=== PATIENT | male | born 1970 | race Hispanic/Latino ===

== ENCOUNTER → 2017-11-09 | Outpatient (CLI) | payer OTHER ==
--- NOTE | 2017-11-09 12:45 | Diagnostic Imaging Report ---
PROCEDURE:TESTICULAR ULTRASOUND COMPARISON:None. INDICATIONS:SPERMATOCELE OF EPIDIDYMIS TECHNIQUE: Calderon-scale and color doppler images of the testicles and scrotal contents were obtained. Duplex imaging with spectral waveform analysis was performed of the testicular arteries and veins. FINDINGS: RIGHT SCROTUM: Testicle: 4.2 x 2.5 x 3.3 cm. Normal echogenicity. Normal vascularity. No focal lesions. Epididymal head: 1.0 x 0.6 x 0.8 cm. No focal lesions. Normal vascularity. Hydrocele: Trace Varicocele: Possible small LEFT SCROTUM: Testicle: 4.4 x 2.0 x 2.9 cm. Normal echogenicity. Normal vascularity. No focal lesions. Epididymal head: 1.2 x 1.1 x 1.0 cm. 0.6 x 0.6 x 0.5 cm cystic lytic lesion in the left epididymal head. Hydrocele: None Varicocele: Possible small. Normal bilateral arterial and venous flow to both testicles. No sonographic evidence of inguinal hernia. CONCLUSION: 1. Normal bilateral testicular size and echogenicity, without focal lesions. 2. 0.6 cm left epididymal head simple cyst versus spermatocele. 3. Trace right hydrocele. 4. Possible small bilateral varicoceles, left greater than right. Raudel Christianson M.D. Dictated by: Raudel Christianson M.D. on 11/09/2017 at 12:50 Electronically approved by: Raudel Christianson M.D. on 11/09/2017 at 12:50
--- NOTE | 2017-11-09 12:46 | Diagnostic Imaging Report ---
PROCEDURE:TESTICULAR DOPPLER ULTRASOUND COMPARISON:None. INDICATIONS:SPERMATOCELE OF EPIDIDYMIS CONCLUSION: Please see testicular ultrasound performed same date for further detail. Raudel Christianson M.D. Dictated by: Raudel Christianson M.D. on 11/09/2017 at 12:51 Electronically approved by: Raudel Christianson M.D. on 11/09/2017 at 12:51
== END ==
LOC: US 11:15
PROVIDERS: ATTEND Urology
DX: N43.40 Spermatocele of epididymis, unspecified (principal)
CPT/HCPCS: 76870; 93976

== ENCOUNTER 2017-11-27 11:09 | Emergency (ER) | payer OTHER ==
[~2017-11-27] VITALS: Ht 175.3 cm; Wt 97.5 kg
[2017-11-27] MEDS ORDERED: LISINOPRIL10 MG PO (11:25)
[2017-11-27] MEDS ORDERED: METFORMIN HCL500 MG PO (11:27)
[2017-11-27 12:51] VITALS: BP 132/77
== END 2017-11-27 12:53 | disposition home or self-care (01) ==
LOC: FSED 11:09
DX: M79.671 Pain in right foot (principal); S92.344A Nondisplaced fracture of fourth metatarsal bone, right foot, initial encounter for closed fracture; X58.XXXA Exposure to other specified factors, initial encounter; I10 Essential (primary) hypertension; E11.9 Type 2 diabetes mellitus without complications
CPT/HCPCS: 99284

== ENCOUNTER 2018-05-30 14:11 | Emergency (ER) | payer OTHER ==
[~2018-05-30] VITALS: Ht 175.3 cm; Wt 97.5 kg
[~2018-05-30 14:11] MED LIST: LISINOPRIL10 MG PO; METFORMIN HCL500 MG PO
--- OUTSIDE RECORDS SUMMARY | 2018-05-30 14:13 | XMS REPORT | CCD ---
Author Author Auto Generated Organization [facility] Address Unknown Phone Unavailable Care Team Providers Care Food Service Lead Name Role Phone Moiz Peguero Sharmaine CP Allergies, Adverse Reactions, Alerts Substance Reaction Status NKDA Active Problem List Condition Effective Dates Status DM - Diabetes mellitus Resolved HTN - Hypertension Resolved Medications Medication Instructions Start Date End Date Status rabies immune 1,909.1 IntlUnit, 12.73 mL, Route: 09/29/2012 09/29/2012 Completed globulin, human IM, Drug form: INJ, ONCE, Dosing Weight 95.455, kg, Start date: 09/29/12 0:14:00, Stop date: 09/29/12 0:14:00 rabies vaccine, 2.5 unit, 1 mL, Route: IM, Drug 09/29/2012 09/29/2012 Completed purified chick Form: INJ, Dosing Weight 95.455, embryo kg, ONCE, STAT, Start date: 09/29/12 0:13:00, Stop date: 09/29/12 0:13:00 Vital Signs Most recent to oldest [Reference Range]: 1 Height 175.26 cm (09/28/2012 23:47:00) Weight 95.455 kg (09/28/2012 23:47:00)
--- OUTSIDE RECORDS SUMMARY | 2018-05-30 14:13 | XMS REPORT | Continuity of Care Document ---
Author Author [facility] Address Unknown Phone Unavailable Problems Problem Status Onset Date Classification Date Reported Comments Source OTHER Active 10/13/2012 [facility] RETURN VISIT Active 10/02/2012 [facility] BITE Active 09/29/2012 [facility] ANIMAL BITE Active 09/28/2012 [facility] DM - Diabetes mellitus Resolved Problem 10/15/2012 [facility] HTN - Hypertension Resolved Problem 10/15/2012 [facility] Medications Medication Details Route Status Patient Instructions Ordering Provider Order Date Source rabies vaccine, purified chick embryo 2.5 unit, 1 mL, Route: IM, Drug Form: INJ, Dosing Weight 97.727, kg, ONCE, STAT, Start date: 10/13/12 6:38:00, Stop date: 10/13/12 6:38:00 IM No Longer Active [facility] 10/13/2012 [facility] rabies vaccine, purified chick embryo 2.5 unit, 1 mL, Route: IM, Drug Form: INJ, Dosing Weight 95.455, kg, ONCE, STAT, Start date: 10/06/12 6:47:00, Stop date: 10/06/12 6:47:00 IM No Longer Active [place] 10/06/2012 [facility] rabies vaccine, purified chick embryo 2.5 unit, 1 mL, Route: IM, Drug Form: INJ, Dosing Weight 95.455, kg, ONCE, STAT, Start date: 10/02/12 8:25:00, Stop date: 10/02/12 8:25:00 IM No Longer Active [place] 10/02/2012 [facility] rabies immune globulin, human 1,909.1 IntlUnit, 12.73 mL, Route: IM, Drug form: INJ, ONCE, Dosing Weight 95.455, kg, Start date: 09/29/12 0:14:00, Stop date: 09/29/12 0:14:00 IM No Longer Active [place] 09/29/2012 [facility] rabies vaccine, purified chick embryo 2.5 unit, 1 mL, Route: IM, Drug Form: INJ, Dosing Weight 95.455, kg, ONCE, STAT, Start date: 09/29/12 0:13:00, Stop date: 09/29/12 0:13:00 IM No Longer Active [place] 09/29/2012 [facility] Lisinopril 10 Mg Tablet Daily Active [facility] Metformin Hcl 500 Mg Tablet Twice A Day [facility] Allergies, Adverse Reactions, Alerts Substance Category Reaction Severity Reaction type Status Date Reported Comments Source Immunizations Immunization Date Given Site Status Last Updated Comments Source Results Order Name Results Value Reference Range Date Interpretation Comments Source Vital Signs Vital Sign Value Date Comments Source Weight 97.727 10/13/2012 [facility] Height 175.26 cm 10/13/2012 [facility] Weight 97.727 10/06/2012 [facility] Height 175.26 cm 10/06/2012 [facility] Weight 95.455 10/02/2012 [facility] Height 175.26 cm 10/02/2012 [facility] Weight 95.455 09/29/2012 [facility] Height 175.26 cm 09/29/2012 [facility] Encounters Location Location Details Encounter Type Encounter Number Reason For Visit Attending Provider ADM Date DC Date Status Source [facility] Emergency [id number] CADENCE CALDERON 09/28/2012 09/29/2012 Active [facility] Emergency [id number] CADENCE CALDERON 10/02/2012 10/02/2012 Active [facility] Emergency [id number] FORTUNATO KOVACS 10/06/2012 10/06/2012 Active [facility] Emergency [id number] BEULAH APONTE 10/13/2012 10/13/2012 Active [facility] Registered Clinic [id number] COURTNEY HOFFMANN MD 11/09/2017 [facility] Departed Emergency Room [id number] JUHI TORRE MD 11/27/2017 11/27/2017 [facility] Procedures Procedure Code Date Perfomer Comments Source Testicular ultrasound [id number] 11/09/2017 [facility] Dup-scan artl jaelyn abdl/pel/scrot&/[place] [id number] 11/09/2017 [facility]
--- OUTSIDE RECORDS SUMMARY | 2018-05-30 14:13 | XMS REPORT | CCD ---
Author Author Auto Generated Organization [facility] Address Unknown Phone Unavailable Care Team Providers Care Lamp Tester And Inspector Name Role Phone Korey Monzon CP Allergies, Adverse Reactions, Alerts Substance Reaction Status NKDA Active Problem List Condition Effective Dates Status DM - Diabetes mellitus Resolved HTN - Hypertension Resolved Medications Medication Instructions Start Date End Date Status rabies vaccine, 2.5 unit, 1 mL, Route: IM, Drug 10/13/2012 10/13/2012 Completed purified chick Form: INJ, Dosing Weight 97.727, embryo kg, ONCE, STAT, Start date: 10/13/12 6:38:00, Stop date: 10/13/12 6:38:00 Vital Signs Most recent to oldest [Reference Range]: 1 Height 175.26 cm (10/13/2012 05:44:00) Weight 97.727 kg (10/13/2012 05:44:00)
--- OUTSIDE RECORDS SUMMARY | 2018-05-30 14:13 | XMS REPORT | CCD ---
Author Author Auto Generated Organization [facility] Address Unknown Phone Unavailable Care Team Providers Care Data Scientist Name Role Phone Duy Kovacs CP Allergies, Adverse Reactions, Alerts Substance Reaction Status NKDA Active Problem List Condition Effective Dates Status DM - Diabetes mellitus Resolved HTN - Hypertension Resolved Medications Medication Instructions Start Date End Date Status rabies vaccine, 2.5 unit, 1 mL, Route: IM, Drug 10/06/2012 10/06/2012 Completed purified chick Form: INJ, Dosing Weight 95.455, embryo kg, ONCE, STAT, Start date: 10/06/12 6:47:00, Stop date: 10/06/12 6:47:00 Vital Signs Most recent to oldest [Reference Range]: 1 Height 175.26 cm (10/06/2012 05:47:00) Weight 97.727 kg (10/06/2012 05:47:00)
--- OUTSIDE RECORDS SUMMARY | 2018-05-30 14:13 | XMS REPORT | Clinical Summary ---
Author Author [facility] Organization [facility] Address Unknown Phone Unavailable Care Team Providers Care Cold Storage Superintendent Name Role Phone Kevin Sharp MD PCP Allergies No Known Allergies Medications End Date Status Medication Sig Dispensed Refills Start Date Active pioglitazone-metformin 0 (ACTOPLUS MET) 15-850 mg 8 per tablet Active LANTUS SOLOSTAR U-100 0 INSULIN 100 unit/mL 8 injection (pen) Active ezetimibe (ZETIA) 10 mg 0 tablet 8 Active FARXIGA 5 mg tablet 0 8 Active azithromycin (ZITHROMAX) 0 500 MG tablet 8 Active atorvastatin (LIPITOR) 20 0 MG tablet 8 Active acetaminophen-codeine Take 1 tablet 0 (TYLENOL WITH CODEINE #3) by mouth 8 300-30 mg per tablet every 4 (four) hours as needed. for pain Active lisinopril 0 (PRINIVIL,ZESTRIL) 20 mg 8 tablet Active lisinopril 0 (PRINIVIL,ZESTRIL) 40 mg 8 tablet Active Problems Problem Noted Date Closed nondisplaced fracture of fourth metatarsal bone of right foot 11/30/2017 Encounters Care Team Description Date Type Specialty Kyle Desai MD Closed nondisplaced fracture of fourth metatarsal bone of right foot, initial encounter (Primary Dx) 02/06/2018 Office Visit Orthopedic Surgery Kyle Desai MD Closed nondisplaced fracture of fourth metatarsal bone of right foot, initial encounter (Primary Dx) 12/28/2017 Office Visit Orthopedic Surgery Kyle Desai MD 12/04/2017 Hospital Radiology Encounter Kyle Desai MD Closed nondisplaced fracture of fourth metatarsal bone of right foot, initial encounter (Primary Dx) 11/30/2017 Office Visit Orthopedic Surgery after 05/29/2017 Social History Date Tobacco Use Types Packs/Day Years Used Never Smoker Smokeless Tobacco: Never Used Alcohol Use Drinks/Week oz/Week Comments No Sex Assigned at Date Recorded Not on file Industry Job Start Date Occupation Not on file Not on file Not on file Travel End Travel History Travel Start No recent travel history available. Last Filed Vital Signs Time Taken Vital Sign Reading 12/28/2017 3:15 PM CDT Blood Pressure 130/76 12/28/2017 3:15 PM CDT Pulse 78 - Temperature - - Respiratory Rate - - Oxygen Saturation - - Inhaled Oxygen - Concentration 12/28/2017 3:15 PM CDT Weight 97.5 kg (215 lb) 12/28/2017 3:15 PM CDT Height 175.3 cm (5' 9") 12/28/2017 3:15 PM CDT Body Mass Index 31.75 Plan of Treatment Health Maintenance Due Date Last Done Comments INFLUENZA VACCINE 11/22/2017 Procedures Comments Procedure Name Priority Date/Time Associated Diagnosis XR FOOT 3+ VW RIGHT Routine 02/06/2018 Closed nondisplaced 3:00 PM CDT fracture of fourth metatarsal bone of right foot, initial encounter XR FOOT 3+ VW RIGHT Routine 12/28/2017 Closed nondisplaced 3:06 PM CDT fracture of fourth metatarsal bone of right foot, initial encounter XR LOWER EXTREMITY Routine 11/27/2017 EXTERNAL STUDY 4:21 PM CDT after 05/29/2017 Results * XR Foot 3+ Vw Right (02/06/2018 3:00 PM CDT) Only the most recent of 2 results within the time period is included. Narrative Performed At [facility] Fourth metatarsal fracture continues to heal well. Good alignment AP and lateral planes. Performing Organization Address City/State/Zipcode Phone Number [facility] [address] [place] [address] * XR Lower Extremity External Study (11/27/2017 4:21 PM CDT) Narrative Performed At This exam was not acquired at a [facility] facility and has not been [facility] interpreted by a [facility] Provider.The exam was imported into our imaging system for comparisons purposes. Performing Organization Address City/State/Zipcode Phone Number [facility] [address] [place] [address] after 05/29/2017 Insurance Payer Benefit Subscriber ID Type Phone Address Plan / Group AETNA AETNA xxxxxxxxxx HMO HMO,POS,EP O, MC/EC Advance Directives Patient has advance care planning documents on file. For more information, william de jesus contact: Jalen Jeffers [address] [place] [address]
--- OUTSIDE RECORDS SUMMARY | 2018-05-30 14:13 | XMS REPORT | CCD ---
Author Author Auto Generated Organization [facility] Address Unknown Phone Unavailable Care Team Providers Care School Superintendent Name Role Phone Moiz Peugero CP Allergies, Adverse Reactions, Alerts Substance Reaction Status NKDA Active Problem List Condition Effective Dates Status DM - Diabetes mellitus Resolved HTN - Hypertension Resolved Medications Medication Instructions Start Date End Date Status rabies vaccine, 2.5 unit, 1 mL, Route: IM, Drug 10/02/2012 10/02/2012 Completed purified chick Form: INJ, Dosing Weight 95.455, embryo kg, ONCE, STAT, Start date: 10/02/12 8:25:00, Stop date: 10/02/12 8:25:00 Vital Signs Most recent to oldest [Reference Range]: 1 Height 175.26 cm (10/02/2012 08:07:00) Weight 95.455 kg (10/02/2012 08:07:00)
--- NOTE | 2018-05-30 15:10 | Diagnostic Imaging Report ---
Exam: Right tibia radiographs (four views) History: Pain to right anterior tibia Comparison: None. Findings: No evidence of acute fracture, malalignment, or soft tissue abnormality. There is mild irregularity in the mid fibula on lateral view, suggestive of prior trauma. There are diffuse atherosclerotic calcifications. Mild degenerative changes within the ankle and knee. Ankle mortise appears grossly intact. There is a large plantar calcaneal spur. There is Achilles enthesopathy. Impression: No acute radiographic abnormality. Signed by: Dr. Dereje Bah MD on 05/30/2018 3:06 PM
== END 2018-05-30 15:16 | disposition home or self-care (01) ==
LOC: FSED 14:11
DX: S80.11XA Contusion of right lower leg, initial encounter (principal); W22.09XA Striking against other stationary object, initial encounter; I10 Essential (primary) hypertension; E11.9 Type 2 diabetes mellitus without complications; E78.5 Hyperlipidemia, unspecified
CPT/HCPCS: 99283